=== PATIENT | male | born 2000 | race Caucasian/White ===

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

== ENCOUNTER 2020-10-16 20:57 | Emergency (ER) | payer MEDICAID, OTHER ==
[~2020-10-16] VITALS: Ht 180.3 cm; Wt 70.3 kg
[2020-10-16 21:05] VITALS: BP_SYST 114
[2020-10-16 22:31] VITALS: BP_SYST 114
== END 2020-10-16 22:31 | disposition home or self-care (01) ==
LOC: SED 20:57
DX: S83.195A Other dislocation of left knee, initial encounter (principal); X50.1XXA Overexertion from prolonged static or awkward postures, initial encounter; Y93.89 Activity, other specified; Y92.89 Other specified places as the place of occurrence of the external cause; Y99.8 Other external cause status
CPT/HCPCS: 73564; 99283